=== PATIENT | male | born 1990 | race Two or more races ===

== ENCOUNTER 2018-05-06 23:08 | Inpatient (IN) | payer OTHER ==
[~2018-05-06] VITALS: Ht 167.6 cm; Wt 63.5 kg
[2018-05-07 00:08] LABS: Basophils # (auto) 0.1 uL; Basophils % (auto) 0.4 % (0.0-2.0); Eosinophils # (auto) 0 uL; Eosinophils % (auto) 0.2 % (0.0-7.0); Hematocrit 43.9 % (41.0-53.0); Lymphocytes # (auto) 1.8 uL; Lymphocytes % (auto) 9.2 % (10.0-50.0); Mean Corpuscular Hemoglobin 30.4 pg (28.0-32.0); Mean Corpuscular Hgb Conc. 34.1 g/dL (32.0-36.0); Mean Corpuscular Volume 89.3 fL (80.0-100.0); Monocytes # (auto) 1.8 uL; Monocytes % (auto) 8.9 % (0.0-12.0); Neutrophils % (auto) 81.3 % (37.0-80.0); Platelet Count (auto) 344 10^3/uL (140-450); Red Blood Cells 4.92 10^6/uL (4.5-5.90); Red Cell Distribution Width 12.9 % (11.8-14.3); White Blood Cell 19.7 10^3/uL (4.4-10.8)
[2018-05-07 00:24] LABS: Alanine Aminotransferase 31 U/L (16-61); Albumin 3.7 g/dL (3.4-5.0); Anion Gap 12 (5-15); Aspartate Aminotransferase 16 U/L (15-37); BUN/Creatinine Ratio 12.5; Blood Urea Nitrogen 12 mg/dL (7-18); Calcium 8.8 mg/dL (8.5-10.1); Carbon Dioxide 26 mmol/L (21-32); Chloride 100 mmol/L (98-107); GFR African American 122 mL/min; GFR Non-African American 101 mL/min; Glucose 99 mg/dL (74-106); Potassium 4.2 mmol/L (3.5-5.1); Sodium 138 mmol/L (136-145)
[2018-05-07 00:28] LABS: Alkaline Phosphatase 85 U/L (45-117); Bilirubin, Total 0.7 mg/dL (0.2-1.0); Total Protein 8.8 g/dL (6.4-8.2)
[2018-05-07] MEDS ORDERED: VANCOMYCIN 1GM/250ML 250 ML IV ONE (01:45)
[2018-05-07] MEDS ORDERED: PIPERACILLIN-TAZOB 3.375GM 100 ML IV ONE (01:45)
[2018-05-07 03:16] LABS: Urine WBC None Seen /hpf (0 - 3)
[2018-05-07 03:50] LABS: Urine Bacteria NONE SEEN /hpf (None Seen); Urine Blood Negative /uL (Negative); Urine Specific Gravity 1.005 (1.001-1.035)
[2018-05-07] MEDS ORDERED: diphenhdrAMINE HCL 50 MG/1 ML VL IV ONE (05:14)
[2018-05-07] MEDS ORDERED: diphenhdrAMINE HCL 50 MG/1 ML VL ONE (05:15)
[2018-05-07] MEDS: PIPERACILLIN-TAZOB 3.375GM 100 ML IV SCH ×2 (12:10→22:53)
[2018-05-07 17:11] VITALS: BP 112/71
[2018-05-07 22:00] VITALS: BP 110/71
[2018-05-08 05:10] VITALS: BP 113/75
[2018-05-08] MEDS: PIPERACILLIN-TAZOB 3.375GM 100 ML IV SCH ×4 (05:11→20:55)
[2018-05-08 05:39] LABS: Basophils # (auto) 0 uL; Basophils % (auto) 0.3 % (0.0-2.0); Eosinophils # (auto) 0.2 uL; Eosinophils % (auto) 1.9 % (0.0-7.0); Hemoglobin 13.3 g/dL (13.5-17.5); Lymphocytes # (auto) 2.1 uL; Mean Corpuscular Hemoglobin 30.6 pg (28.0-32.0); Mean Corpuscular Hgb Conc. 34.2 g/dL (32.0-36.0); Mean Corpuscular Volume 89.6 fL (80.0-100.0); Monocytes % (auto) 13.2 % (0.0-12.0); Neutrophils # (auto) 4.6 uL; Neutrophils % (auto) 58.6 % (37.0-80.0); Platelet Count (auto) 315 10^3/uL (140-450); Red Blood Cells 4.35 10^6/uL (4.5-5.90); Red Cell Distribution Width 12.7 % (11.8-14.3); White Blood Cell 7.9 10^3/uL (4.4-10.8)
[2018-05-08 06:09] LABS: BUN/Creatinine Ratio 13.9; Potassium 3.7 mmol/L (3.5-5.1)
[2018-05-08 06:12] LABS: Bilirubin, Total 0.4 mg/dL (0.2-1.0); Total Protein 7.5 g/dL (6.4-8.2)
[2018-05-08 09:00] VITALS: BP 104/79
[2018-05-08 13:00] VITALS: BP 110/63
[2018-05-08] MEDS: HYDROcodone-ACET 10/325MG TAB PO PRN (16:34)
[2018-05-08 17:00] VITALS: BP 103/64
[2018-05-08 20:00] VITALS: BP 114/63
[2018-05-08 22:00] VITALS: BP 114/63
[2018-05-09] MEDS: PIPERACILLIN-TAZOB 3.375GM 100 ML IV SCH ×2 (04:54→13:00)
[2018-05-09 05:00] VITALS: BP 113/65
[2018-05-09] MEDS: HYDROcodone-ACET 10/325MG TAB PO PRN (05:03)
[2018-05-09 08:42] VITALS: BP 102/59
== END 2018-05-09 14:57 | DRG 603 ==
LOC: ER 23:11 → OVERFLOW 23:12 → WEST WING 05-07 17:04
PROVIDERS: ADMIT Internal Medicine; ATTEND Internal Medicine
DX: L03.115 Cellulitis of right lower limb (principal); L02.612 Cutaneous abscess of left foot; L02.611 Cutaneous abscess of right foot; L03.116 Cellulitis of left lower limb; B35.3 Tinea pedis; L97.509 Non-pressure chronic ulcer of other part of unspecified foot with unspecified severity; B95.0 Streptococcus, group A, as the cause of diseases classified elsewhere
CPT/HCPCS: 36415; 73620; 80053; 81001; 83605; 84484; 85025; 87040; 87077; 87186; 87205; 96365; 96367; 96375; J2543